=== PATIENT | male | born 1980 | race African-American/Black ===

== ENCOUNTER 2020-01-27 09:36 | Emergency (ER) | payer SELFPAY ==
[2020-01-27] MEDS ORDERED: KETOROLAC TROMETHAMINE 60 MG/2 ML SDV IM ONE (09:47)
--- NOTE | 2020-01-27 09:50 | ER Document Report ---
ED Medical Screen (RME) - General Chief Complaint: Abdominal Pain Stated Complaint: ABDOMINAL PAIN Time Seen by Provider: 01/27/20 09:42 Mode of Arrival: Ambulatory Information source: Patient Notes: 39-year-old healthy male presents to the emergency department with complaints of right-sided abdominal pain. Reports symptoms started last night. Denies fever nausea vomiting diarrhea. Reports it hurts more when he sits down. Patient right-sided abdomen tender to palpate worse in the right upper quadrant. Patient reports he does smoke cigarettes and is a social drinker. Reports he does not drink alcohol every day. No other family members ill. I have greeted and performed a rapid initial assessment of this patient. A comprehensive ED assessment and evaluation of the patient, analysis of test results and completion of the medical decision making process will be conducted by additional ED providers. - Related Data Allergies/Adverse Reactions: No Known Allergies Allergy (Verified 01/27/20 09:46) Past Medical History - Social History Frequency of alcohol use: Occasional Drug Abuse: None Physical Exam - Vital signs Vitals: Temp Pulse Resp BP Pulse Ox 98.8 F 76 14 142/91 H 96 01/27/20 09:41 01/27/20 09:41 01/27/20 09:41 01/27/20 09:41 01/27/20 09:41 Course - Vital Signs Vital signs: Temp Pulse Resp BP Pulse Ox 98.8 F 76 14 142/91 H 96 01/27/20 09:42 01/27/20 09:41 01/27/20 09:41 01/27/20 09:41 01/27/20 09:41
[2020-01-27 10:21] LABS: APPEARANCE,URINE CLEAR; BILIRUBIN,URINE NEGATIVE (NEGATIVE); COLOR,URINE YELLOW; GLUCOSE, URINE NEGATIVE (NEGATIVE); KETONES,URINE NEGATIVE (NEGATIVE); LEUKOCYTE ESTERASE,URINE NEGATIVE (NEGATIVE); NITRITE,URINE NEGATIVE (NEGATIVE); PROTEIN,URINE NEGATIVE (NEGATIVE); URINE SPECIFIC GRAVITY 1.018; UROBILINOGEN,URINE NEGATIVE mg/dL (<2.0)
--- NOTE | 2020-01-27 10:26 | RADIOLOGY REPORT (SQ) ---
EXAM DESCRIPTION: U/S ABDOMEN LIMITED W/O DOP IMAGES COMPLETED DATE/TIME: 01/27/2020 10:15 am REASON FOR STUDY: ruq abd pain COMPARISON: None. TECHNIQUE: Dynamic and static grayscale images acquired of the abdomen and recorded on PACS. Additio nal selected color Doppler and spectral images recorded. LIMITATIONS: None. FINDINGS: PANCREAS: No masses. Visualized pancreatic duct normal caliber. LIVER: No masses. Echotexture normal. LIVER VASCULATURE: Normal directional flow of the main portal vein and hepatic veins. GALLBLADDER: No stones. Normal wall thickness. No pericholecystic fluid. ULTRASOUND-DETECTED RHODES'S SIGN: Negative. INTRAHEPATIC DUCTS AND COMMON DUCT: CBD and intrahepatic ducts normal caliber. No filling defects. AORTA: No aneurysm. RIGHT KIDNEY: Normal size. Normal echogenicity. No solid or suspicious masses. No hydronephrosis. No calcifications. PERITONEAL AND RIGHT PLEURAL SPACE: No ascites or effusions. OTHER: No other significant findings. IMPRESSION: NORMAL RIGHT UPPER QUADRANT ULTRASOUND. TECHNICAL DOCUMENTATION: JOB ID: [id number] 2010 [employer]- All Rights Reserved Reading location - IP/workstation name: [email or web address]
[2020-01-27 10:36] LABS: ABSOLUTE EOSINOPHILS # (AUTO) 0.1 10^3/uL (0.0-0.6); ABSOLUTE LYMPHOCYTES (AUTO) 2.1 10^3/uL (0.5-4.7); ABSOLUTE MONOCYTES (AUTO) 0.7 10^3/uL (0.1-1.4); ABSOLUTE NEUT (AUTO) 9.8 10^3/uL (1.7-8.2); BASOPHILS % (AUTO) 0.2 % (0-2); EOSINOPHILS % (AUTO) 0.7 % (0-6); HEMATOCRIT 49.1 % (37.9-51.0); HEMOGLOBIN 16.4 g/dL (13.5-17.0); LYMPHOCYTES % (AUTO) 16.3 % (13-45); MEAN CORPUSCULAR HEMOGLOBIN 29.3 pg (27.0-33.4); MEAN CORPUSCULAR HGB CONC 33.3 g/dL (32.0-36.0); MEAN CORPUSCULAR VOLUME 88 fl (80-97); MONOCYTES % (AUTO) 5.4 % (3-13); PLATELET COUNT 278 10^3/uL (150-450); RED BLOOD COUNT 5.59 10^6/uL (4.35-5.55); RED CELL DISTRIBUTION WIDTH 13.9 % (11.5-14.0); SEGMENTED NEUTROPHILS % (AUTO) 77.4 % (42-78); TOTAL CELLS COUNTED % (AUTO) 100 %; WHITE BLOOD COUNT 12.6 10^3/uL (4.0-10.5)
[2020-01-27 11:00] LABS: ALBUMIN 4.4 g/dL (3.5-5.0); ALKALINE PHOSPHATASE 73 U/L (38-126); ANION GAP 8 (5-19); ASPARTATE AMINO TRANSFERASE 32 U/L (17-59); BILIRUBIN,TOTAL 0.7 mg/dL (0.2-1.3); BLOOD UREA NITROGEN 12 mg/dL (7-20); CALCIUM 9.6 mg/dL (8.4-10.2); CARBON DIOXIDE 29 mmol/L (22-30); CHLORIDE 103 mmol/L (98-107); GLUCOSE 115 mg/dL (75-110); POTASSIUM 4.4 mmol/L (3.6-5.0); TOTAL PROTEIN 7.8 g/dL (6.3-8.2)
--- NOTE | 2020-01-27 11:03 | ER Document Report ---
ED GI/ - General Chief Complaint: Abdominal Pain Stated Complaint: ABDOMINAL PAIN Time Seen by Provider: 01/27/20 09:42 Mode of Arrival: Ambulatory Notes: HPI: 39-year-old male who presents today with what he states was the onset around 3 PM yesterday of some pain to the right upper abdomen. He denies any trauma, radiation to his back, radiation to his lower abdomen, nausea, fevers, vomiting, cough, calf pain or leg swelling. He does believe food may cause it to worsen. He denies history of this previously. ROS: See HPI All other review of systems reviewed and otherwise negative Reviewed vital signs and nursing note as charted by RN. PHYSICAL EXAM: CONSTITUTIONAL: Alert and oriented and responds appropriately to questions. Well-appearing; well-nourished HEAD: Normocephalic; atraumatic EYES: Sclerae non-icteric ENT: Normal nose; no rhinorrhea; moist mucous membranes; pharynx without lesions noted NECK: Supple without meningismus; non-tender; no cervical lymphadenopathy, no masses CARD: Regular rate and rhythm; no murmurs; symmetric distal pulses RESP: Normal chest excursion without splinting or tachypnea; breath sounds clear and equal bilaterally ABD/GI: Normal bowel sounds; non-distended; soft, mild tenderness to palpation the right upper quadrant with no palpable hepatosplenomegaly and a negative Gold sign. No tenderness to the lower ribs or other quadrants of the abdomen BACK: The back appears normal and is non-tender to palpation EXT: Normal ROM in all joints; non-tender to palpation; no edema SKIN: No acute lesions noted NEURO: CN 2-12 intact; 5/5 bilateral upper and lower extremity strength with sensation intact to light touch PSYCH: The patient's mood and manner are appropriate. Grooming and personal hygiene are appropriate. - Related Data Allergies/Adverse Reactions: No Known Allergies Allergy (Verified 01/27/20 09:46) Past Medical History - General Information source: Patient - Social History Smoking Status: Current Every Day Smoker Frequency of alcohol use: Occasional Drug Abuse: None Family History: Reviewed & Not Pertinent Patient has homicidal ideation: No Physical Exam - Vital signs Vitals: Temp Pulse Resp BP Pulse Ox 98.8 F 76 14 142/91 H 96 01/27/20 09:41 01/27/20 09:41 01/27/20 09:41 01/27/20 09:41 01/27/20 09:41 Course - Re-evaluation Re-evalutation: 01/27/20 11:02 Given the above history and physical, in triage the patient had a liver panel, lipase, and right upper quadrant ultrasound ordered. Patient has no rebound or guarding and clear lungs bilaterally with no cough or shortness of breath. I would like to assess the possibility of gallbladder pathology and an ultrasound has been ordered. White blood cell count is slightly elevated. Patient's pain is controlled currently. 01/27/20 11:24 Labs, liver panel, lipase, and ultrasound as recorded. 01/27/20 12:02 Labs and ultrasound as recorded. Still no change in examination. Patient has no tenderness to all other quadrants of the abdomen. Right upper quadrant exam is improved. Still no rib tenderness with clear lungs bilaterally. No shortness of breath or cough. I have offered CT scan to the patient or a trial of antacid medications. He would like to try the antacid medications and promises to return with new or worsening symptoms. - Vital Signs Vital signs: Temp Pulse Resp BP Pulse Ox 98.8 F 76 14 142/91 H 96 01/27/20 09:42 01/27/20 09:41 01/27/20 09:41 01/27/20 09:41 01/27/20 09:41 - Laboratory Result Diagrams: 01/27/20 09:57 01/27/20 09:57 Laboratory results interpreted by me: 01/27/20 01/27/20 01/27/20 09:57 09:57 09:57 WBC 12.6 H RBC 5.59 H Absolute Neuts (auto) 9.8 H Glucose 115 H Urine Blood SMALL H Discharge - Discharge Clinical Impression: Right upper quadrant abdominal pain Condition: Good Disposition: HOME, SELF-CARE Additional Instructions: Come back immediately for any increased pain, change in location or quality of pain, fevers or vomiting, cough or shortness of breath, or any other acute problems. Please make sure that she follow-up with the primary care physician and possibly the reflesher as we have provided. Prescriptions: Omeprazole Magnesium [Prilosec Otc] 20 mg PO DAILY #30 tablet.dr Referrals: RANDY POWELL MD [ACTIVE STAFF] - Follow up as needed
[2020-01-27] MEDS ORDERED: LIDOCAINE 2% VISCOUS SOLN 15 ML UDCUP PO ONE (12:05)
[2020-01-27] MEDS ORDERED: MAG HYDROX/AL HYDROX/SIMETH SUSP 30 ML UDCUP PO ONE (12:05)
[2020-01-27] MEDS ORDERED: METOCLOPRAMIDE HCL ORAL SOLN 10 MG/10 ML UDCUP PO ONE (12:05)
[2020-01-27 12:39] VITALS: BP 150/106
== END 2020-01-27 12:39 | disposition home or self-care (01) ==
LOC: ER 09:36
DX: R10.11 Right upper quadrant pain (principal); F17.200 Nicotine dependence, unspecified, uncomplicated
CPT/HCPCS: 99284; 96372; 36415; 83690; 85025; 80053; 81001; 76705; J1885; J3490